=== PATIENT | male | born 1955 | race African-American/Black ===

== ENCOUNTER 2023-04-10 13:57 | Inpatient (IN) | payer OTHER ==
[2023-04-10 16:44] VITALS: BMI 22.3
[2023-04-10] MEDS ORDERED: BENZONATATE 200 MG CAPSULE PO PRN (18:09)
[2023-04-10] MEDS ORDERED: IBUPROFEN 400 MG TABLET (FP) PO PRN (18:09)
[2023-04-10] MEDS ORDERED: BENZOCAINE/MENTHOL (CHLORASEPTIC ) LOZENGE MM PRN (18:09)
[2023-04-10] MEDS ORDERED: MAG HYDROX/AL HYDROX/SIMETH 30 ML UNIT-DOSE CUP PO PRN (18:09)
[2023-04-10] MEDS ORDERED: NALOXONE HCL 0.4 MG/ML VIAL IM PRN (18:09)
[2023-04-10] MEDS ORDERED: guaiFENesin 600 MG TABLET.ER (FP) PO PRN (18:09)
[2023-04-10] MEDS ORDERED: IBUPROFEN 600 MG TABLET (FP) PO PRN (18:09)
[2023-04-10] MEDS ORDERED: ACETAMINOPHEN 325 MG TABLET (FP) PO PRN (18:09)
[2023-04-10] MEDS ORDERED: BISMUTH SUBSALICYLATE 524 MG/30 ML PO PRN (18:09)
[2023-04-10] MEDS ORDERED: NALOXONE HCL (KLOXXADO) 8 MG SPRAY NS PRN (18:09)
[2023-04-10] MEDS ORDERED: POLYETHYLENE GLYCOL (HEALTHYLAX) 3350 17 GM PACKET PO PRN (18:09)
[2023-04-10] MEDS ORDERED: chlordiazePOXIDE HCL 25 MG CAPSULE PO PRN (18:09)
[2023-04-10] MEDS ORDERED: DICYCLOMINE HCL 10 MG CAPSULE PO PRN (18:09)
[2023-04-10] MEDS ORDERED: MAGNESIUM HYDROX 2400MG/30ML ORAL SUSPENSION 30 ML CUP PO PRN (18:09)
[2023-04-10] MEDS ORDERED: ONDANSETRON *ODT* 4 MG TABLET SL PRN (18:09)
[2023-04-10] MEDS ORDERED: LOPERAMIDE HCL 2 MG CAPSULE PO PRN (18:09)
[2023-04-10] MEDS: chlordiazePOXIDE HCL 25 MG CAPSULE PO SCH (22:12)
[2023-04-10] MEDS: THIAMINE HCL 100 MG TABLET (FP) PO SCH (22:12)
[2023-04-10] MEDS: MELATONIN 5 MG TABLETS PO SCH (22:13)
[2023-04-11] MEDS: chlordiazePOXIDE HCL 25 MG CAPSULE PO SCH ×4 (05:45→22:40)
[2023-04-11 09:41] LABS: POTASSIUM 3.1 mmol/L (3.5-5.1)
[2023-04-11 09:44] LABS: HEMATOCRIT 37.1 % (35.4-49); HEMOGLOBIN 12.5 GM/dL (11.7-16.9); MCH 31.2 pg (25.7-33.7); MCHC 33.6 g/dl (32.0-35.9); MEAN CELL VOLUME 92.7 fl (80-96); MEAN PLT VOLUME 8.8 fl (7.5-11.1); PLATELET COUNT 230 10^3/uL (134-434); RBC 4.01 M/mm3 (4.00-5.60); RDW 14.6 % (11.9-15.9); WHITE BLOOD COUNT 5.6 K/mm3 (4.0-10.0)
[2023-04-11 09:59] LABS: CALCIUM 8.9 mg/dL (8.5-10.1)
[2023-04-11 10:00] LABS: ALBUMIN 3.6 g/dl (3.4-5.0); BLOOD UREA NITROGEN 15.5 mg/dL (7-18)
[2023-04-11 10:04] LABS: TOT PROT 7.2 g/dl (6.4-8.2)
[2023-04-11] MEDS: METHOCARBAMOL 500 MG TABLET PO PRN (10:33)
[2023-04-11] MEDS: PRENATAL VITAMINS W/ FOLIC ACID TABLET (FP) PO SCH (10:33)
[2023-04-11] MEDS ORDERED: POTASSIUM CHLORIDE ORAL LIQUID 20 MEQ/15 ML PO ONE ×3 (13:02→22:00)
[2023-04-11] MEDS: THIAMINE HCL 100 MG TABLET (FP) PO SCH (22:40)
[2023-04-11] MEDS: MELATONIN 5 MG TABLETS PO SCH (22:42)
[2023-04-12] MEDS: chlordiazePOXIDE HCL 25 MG CAPSULE PO SCH ×4 (05:17→22:21)
[2023-04-12] MEDS: hydrOXYzine PAMOATE 25 MG CAPSULE (FP) PO PRN (10:32)
[2023-04-12] MEDS: METHOCARBAMOL 500 MG TABLET PO PRN (10:32)
[2023-04-12] MEDS: PRENATAL VITAMINS W/ FOLIC ACID TABLET (FP) PO SCH (10:33)
[2023-04-12] MEDS: THIAMINE HCL 100 MG TABLET (FP) PO SCH (22:21)
[2023-04-12] MEDS: MELATONIN 5 MG TABLETS PO SCH (22:21)
[2023-04-13] MEDS ORDERED: chlordiazePOXIDE HCL 10 MG CAPSULE PO PRN
[2023-04-13] MEDS: chlordiazePOXIDE HCL 10 MG CAPSULE PO SCH ×4 (05:05→22:18)
[2023-04-13] MEDS: PRENATAL VITAMINS W/ FOLIC ACID TABLET (FP) PO SCH (10:20)
[2023-04-13] MEDS: METHOCARBAMOL 500 MG TABLET PO PRN (10:20)
[2023-04-13] MEDS: hydrOXYzine PAMOATE 25 MG CAPSULE (FP) PO PRN (10:20)
[2023-04-13 10:29] LABS: POTASSIUM 3.8 mmol/L (3.5-5.1)
[2023-04-13 10:33] LABS: ALBUMIN 3.3 g/dl (3.4-5.0); CALCIUM 9.1 mg/dL (8.5-10.1)
[2023-04-13 10:34] LABS: BLOOD UREA NITROGEN 15.5 mg/dL (7-18)
[2023-04-13 10:36] LABS: CREATININE 0.8 mg/dL (0.55-1.3)
[2023-04-13 10:38] LABS: BILIRUBIN,TOTAL 0.4 mg/dL (0.2-1); TOT PROT 6.8 g/dl (6.4-8.2)
[2023-04-13] MEDS: THIAMINE HCL 100 MG TABLET (FP) PO SCH (22:18)
[2023-04-13] MEDS: MELATONIN 5 MG TABLETS PO SCH (22:20)
[2023-04-14] MEDS: chlordiazePOXIDE HCL 10 MG CAPSULE PO SCH ×2 (05:29→17:21)
[2023-04-14] MEDS: METHOCARBAMOL 500 MG TABLET PO PRN ×2 (05:31→22:26)
[2023-04-14] MEDS: PRENATAL VITAMINS W/ FOLIC ACID TABLET (FP) PO SCH (10:21)
[2023-04-14] MEDS: amLODIPine BESYLATE 10 MG TABLET (FP) PO SCH (10:22)
[2023-04-14] MEDS ORDERED: ATORVASTATIN CA 10 MG TABLET (FP) PO SCH (22:00)
[2023-04-14] MEDS: MELATONIN 5 MG TABLETS PO SCH (22:26)
[2023-04-14] MEDS: THIAMINE HCL 100 MG TABLET (FP) PO SCH (22:26)
[2023-04-15] MEDS ORDERED: chlordiazePOXIDE HCL 10 MG CAPSULE PO ONE (05:00)
[2023-04-15] MEDS: hydrOXYzine PAMOATE 25 MG CAPSULE (FP) PO PRN (05:33)
[2023-04-15 10:01] VITALS: BP 123/64; PULSE 103; RESP 16; TEMP 98.9
[2023-04-15] MEDS: amLODIPine BESYLATE 10 MG TABLET (FP) PO SCH (10:23)
[2023-04-15] MEDS: PRENATAL VITAMINS W/ FOLIC ACID TABLET (FP) PO SCH (10:23)
== END 2023-04-15 12:00 | disposition other institution (70) | DRG 897 ==
LOC: YASAS 13:57 → Y6N 18:01
PROVIDERS: ADMIT Allergy & Immunology; ATTEND Surgery
PROC: HZ2ZZZZ Detoxification Services for Substance Abuse Treatment (ICD-10-PCS; principal; 2023-04-10)
DX: F10.230 Alcohol dependence with withdrawal, uncomplicated (principal); E87.6 Hypokalemia; E78.5 Hyperlipidemia, unspecified; I10 Essential (primary) hypertension; R74.01 Elevation of levels of liver transaminase levels; R73.03 Prediabetes; Z87.891 Personal history of nicotine dependence; Z88.8 Allergy status to other drugs, medicaments and biological substances
CPT/HCPCS: 36415; 80053; 83036; 85027; 86780; 87635